=== PATIENT | male | born 1945 | race African-American/Black ===

== ENCOUNTER 2017-10-28 13:50 | Inpatient (IN) ==
[2017-10-28 17:16] LABS: Basophils % 0.4 % (0.0-0.8); Eosinophils % 0.3 % (0.00-10.9); Hematocrit 48.9 VOL% (42.0-52.0); Hemoglobin 15.9 GM/DL (14.0-18.0); Immature Granulocytes % 0.3 %; Immature Granulocytes Absolute 0.02 #; Lymphocytes # 1.1 10*3/uL (1.4-4.0); Mean Corpuscular HGB Conc 32.5 GM/DL (32-36); Mean Corpuscular Hemoglobin 34 PG (27-34); Mean Corpuscular Volume 103.6 FL (87-102); Mean Platelet Volume 12.7 FL (9.6-12.0); Monocytes # 0.6 10*3/uL (0.11-0.8); Monocytes % 7.7 % (1.7-12.7); Neutrophils # 6.1 10*3/uL (1.4-7.4); Neutrophils % 77.3 % (38.7-73.9); Platelet Count 109 T/CUMM (130-400); Red Blood Count 4.72 MC/CUMM (3.8-5.5); Red Cell Distribution Width 12.5 % (9.3-17.3); White Blood Count 7.8 T/CUMM (4-12)
[2017-10-28 17:37] LABS: Alanine Aminotransferase 22 U/L (16-61); Albumin 3.2 G/DL (3.4-5.0); Alkaline Phosphatase 78 U/L (45-117); Aspartate Amino Transferase 21 U/L (0-37); Blood Urea Nitrogen 41 MG/DL (7-18); CKMB % 5.9 %; Calcium 8.7 MG/DL (8.5-10.1); Glucose 159 MG/DL (74-106); Magnesium 2.9 MG/DL (1.8-2.4); Osmolality,Calculated 289.5 MOS/KG (273-304); Potassium 3.9 MMOL/L (3.5-5.1); Sodium 139 MMOL/L (136-145); Total Protein 8.3 G/DL (6.4-8.3); Troponin I Only < 0.015 NG/ML (0.00-0.045)
[2017-10-28 19:40] LABS: PT Patient Result 10.6 SECS
[2017-10-28] MEDS ORDERED: SODIUM CHLORIDE 0.9% 1,000 ML IV STA ×2 (21:01)
[2017-10-28] MEDS ORDERED: methylPREDNISolone SOD SUC 125 MG/2 ML VIAL IV STA (21:02)
[2017-10-28] MEDS ORDERED: ALBUTEROL/IPRATROPIUM 3 ML NEB RESP TX STA (21:02)
[2017-10-28] MEDS ORDERED: methylPREDNISolone SOD SUC 125 MG/2 ML VIAL ONE (22:15)
[2017-10-29] MEDS ORDERED: ZALEPLON 5 MG CAPSULE PO PRN (00:20)
[2017-10-29] MEDS ORDERED: ONDANSETRON 4 MG/2 ML VIAL IV PRN (00:20)
[2017-10-29] MEDS ORDERED: ALBUTEROL 2.5 MG/3 ML NEB RESP TX PRN (00:20)
[2017-10-29] MEDS ORDERED: ACETAMINOPHEN 325 MG TABLET PO PRN (00:20)
[2017-10-29] MEDS: ALBUTEROL/IPRATROPIUM 3 ML NEB RESP TX SCH ×4 (00:31→20:15)
[2017-10-29] MEDS ORDERED: LORazepam 1 MG TABLET PO PRN (01:14)
[2017-10-29] MEDS: SODIUM CHLORIDE 0.9% 1,000 ML IV SCH ×3 (01:50→20:37)
[2017-10-29] MEDS: LEVOFLOXACIN INJ 750 MG in PREMIX 1 EACH IV SCH (01:52)
[2017-10-29] MEDS: methylPREDNISolone SOD SUC 40 MG/1 ML VIAL IV SCH ×3 (06:30→21:50)
[2017-10-29] MEDS: ENOXAPARIN 40 MG/0.4 ML SYRINGE SUBCUT SCH (06:32)
[2017-10-29] MEDS: BUDESONIDE/FORMOTEROL 160-4.5 INHALER 6 GM INH SCH ×3 (06:32→20:37)
[2017-10-29 07:29] LABS: Hematocrit 35.2 VOL% (42.0-52.0); Immature Granulocytes % 0.3 %; Immature Granulocytes Absolute 0.01 #; Lymphocytes # 0.6 10*3/uL (1.4-4.0); Lymphocytes % 17.2 % (21.2-54.2); Mean Corpuscular HGB Conc 34.1 GM/DL (32-36); Mean Corpuscular Hemoglobin 34 PG (27-34); Mean Platelet Volume 12.3 FL (9.6-12.0); Monocytes # 0.1 10*3/uL (0.11-0.8); Monocytes % 2.2 % (1.7-12.7); Neutrophils # 2.9 10*3/uL (1.4-7.4); Neutrophils % 80.3 % (38.7-73.9); Platelet Count 124 T/CUMM (130-400); Red Cell Distribution Width 12.6 % (9.3-17.3)
[2017-10-29 07:31] LABS: Red Blood Count 3.52 MC/CUMM (3.8-5.5); White Blood Count 3.6 T/CUMM (4-12)
[2017-10-29 07:53] LABS: Band Neutrophils 1 % (0-10); Calcium 7.7 MG/DL (8.5-10.1); Giant Platelets Few; Hypochromasia 1+; Lymphocytes 15 % (20-55); Osmolality,Calculated 288.3 MOS/KG (273-304); Potassium 3.9 MMOL/L (3.5-5.1); Segmented Neutrophils 83 % (50-85); Total Cells Counted 100
[2017-10-29 07:54] LABS: Macrocytosis Slight; Platelet Estimate Adequate
[2017-10-29] MEDS: FOLIC ACID 1 MG TABLET PO SCH (09:36)
[2017-10-29] MEDS: THIAMINE 100 MG TABLET PO SCH (09:36)
[2017-10-29] MEDS: PANTOPRAZOLE 40 MG TABLET PO SCH (09:36)
[2017-10-29] MEDS: MULTIVITAMIN (CENTRUM) TABLET PO SCH (09:36)
[2017-10-29 12:54] LABS: Folate > 24.0 NG/ML (5.4-24.0); Vitamin B12 1066 PG/ML (211-911)
[2017-10-29] MEDS: CITALOPRAM 20 MG TABLET PO SCH (13:53)
[2017-10-30] MEDS: ALBUTEROL/IPRATROPIUM 3 ML NEB RESP TX SCH ×4 (00:04→20:03)
[2017-10-30] MEDS: LEVOFLOXACIN INJ 750 MG in PREMIX 1 EACH IV SCH (01:15)
[2017-10-30] MEDS: SODIUM CHLORIDE 0.9% 1,000 ML IV SCH ×3 (05:27→19:10)
[2017-10-30] MEDS: methylPREDNISolone SOD SUC 40 MG/1 ML VIAL IV SCH ×4 (05:28→23:51)
[2017-10-30] MEDS: ENOXAPARIN 40 MG/0.4 ML SYRINGE SUBCUT SCH (05:30)
[2017-10-30] MEDS: FOLIC ACID 1 MG TABLET PO SCH (09:09)
[2017-10-30] MEDS: BUDESONIDE/FORMOTEROL 160-4.5 INHALER 6 GM INH SCH ×2 (09:09→20:47)
[2017-10-30] MEDS: PANTOPRAZOLE 40 MG TABLET PO SCH (09:09)
[2017-10-30] MEDS: MULTIVITAMIN (CENTRUM) TABLET PO SCH (09:09)
[2017-10-30] MEDS: CITALOPRAM 20 MG TABLET PO SCH (09:09)
[2017-10-30] MEDS: THIAMINE 100 MG TABLET PO SCH (09:09)
[2017-10-31] MEDS: ALBUTEROL/IPRATROPIUM 3 ML NEB RESP TX SCH ×4 (00:12→19:35)
[2017-10-31] MEDS: LEVOFLOXACIN INJ 750 MG in PREMIX 1 EACH IV SCH (03:01)
[2017-10-31] MEDS: SODIUM CHLORIDE 0.9% 1,000 ML IV SCH ×2 (05:33→11:10)
[2017-10-31 06:31] LABS: Basophils % 0.1 % (0.0-0.8); Hematocrit 31.1 VOL% (42.0-52.0); Hemoglobin 10.5 GM/DL (14.0-18.0); Immature Granulocytes % 0.5 %; Immature Granulocytes Absolute 0.04 #; Lymphocytes # 0.7 10*3/uL (1.4-4.0); Lymphocytes % 8.8 % (21.2-54.2); Mean Corpuscular HGB Conc 33.8 GM/DL (32-36); Mean Corpuscular Hemoglobin 33 PG (27-34); Mean Platelet Volume 11.7 FL (9.6-12.0); Monocytes # 0.4 10*3/uL (0.11-0.8); Monocytes % 4.5 % (1.7-12.7); Neutrophils # 7.2 10*3/uL (1.4-7.4); Neutrophils % 86.1 % (38.7-73.9); Platelet Count 228 T/CUMM (130-400); Red Blood Count 3.14 MC/CUMM (3.8-5.5); Red Cell Distribution Width 12.8 % (9.3-17.3); White Blood Count 8.4 T/CUMM (4-12)
[2017-10-31 06:56] LABS: Calcium 8.1 MG/DL (8.5-10.1); Osmolality,Calculated 284.1 MOS/KG (273-304); Potassium 4.1 MMOL/L (3.5-5.1)
[2017-10-31 07:25] LABS: Band Neutrophils 1 % (0-10); Hypochromasia 1+; Lymphocytes 6 % (20-55); Platelet Estimate Adequate; Segmented Neutrophils 87 % (50-85); Total Cells Counted 100
[2017-10-31 07:26] LABS: Giant Platelets Few; Macrocytosis Slight; Ovalocytes Slight
[2017-10-31] MEDS: BISACODYL 5 MG TABLET PO SCH ×2 (10:25→16:21)
[2017-10-31] MEDS: methylPREDNISolone SOD SUC 40 MG/1 ML VIAL IV SCH ×3 (10:25→23:12)
[2017-10-31] MEDS: FOLIC ACID 1 MG TABLET PO SCH (10:26)
[2017-10-31] MEDS: PANTOPRAZOLE 40 MG TABLET PO SCH (10:26)
[2017-10-31] MEDS: MULTIVITAMIN (CENTRUM) TABLET PO SCH (10:26)
[2017-10-31] MEDS: CITALOPRAM 20 MG TABLET PO SCH (10:26)
[2017-10-31] MEDS: BUDESONIDE/FORMOTEROL 160-4.5 INHALER 6 GM INH SCH ×2 (10:26→21:22)
[2017-10-31] MEDS: THIAMINE 100 MG TABLET PO SCH (10:26)
[2017-10-31] MEDS ORDERED: PROPOFOL 200 MG/20 ML VIAL IV ONE (13:05)
[2017-10-31] MEDS ORDERED: LIDOCAINE 2% 5 ML VIAL ONE (13:05)
[2017-10-31] MEDS ORDERED: POLYETHYLENE GLYCOL POWDER 255 GM BOTTLE PO ONE (18:00)
[2017-10-31] MEDS ORDERED: MAGNESIUM CITRATE 300 ML BOTTLE PO ONE (21:00)
[2017-11-01] MEDS: SODIUM CHLORIDE 0.9% 1,000 ML IV SCH ×3 (00:18→16:07)
[2017-11-01] MEDS: BISACODYL 5 MG TABLET PO SCH (00:19)
[2017-11-01] MEDS: ALBUTEROL/IPRATROPIUM 3 ML NEB RESP TX SCH ×4 (01:08→20:59)
[2017-11-01] MEDS: LEVOFLOXACIN INJ 750 MG in PREMIX 1 EACH IV SCH (01:51)
[2017-11-01 08:56] LABS: Calcium 9.2 MG/DL (8.5-10.1); Magnesium 1.6 MG/DL (1.8-2.4); Osmolality,Calculated 275.4 MOS/KG (273-304); Potassium 3.4 MMOL/L (3.5-5.1)
[2017-11-01] MEDS ORDERED: POTASSIUM CHLORIDE 20 MEQ TABLET PO ONE (13:21)
[2017-11-01] MEDS ORDERED: MAGNESIUM SULF RIDER 2 GM in PREMIX 1 EACH IV ONE (13:23)
[2017-11-01] MEDS: THIAMINE 100 MG TABLET PO SCH (15:28)
[2017-11-01] MEDS: PANTOPRAZOLE 40 MG TABLET PO SCH (15:28)
[2017-11-01] MEDS: FOLIC ACID 1 MG TABLET PO SCH (15:28)
[2017-11-01] MEDS: MULTIVITAMIN (CENTRUM) TABLET PO SCH (15:28)
[2017-11-01] MEDS: CITALOPRAM 20 MG TABLET PO SCH (15:28)
[2017-11-01] MEDS ORDERED: ETOMIDATE 20 MG/10 ML VIAL IV ONE (15:51)
[2017-11-01] MEDS ORDERED: PROPOFOL 200 MG/20 ML VIAL IV ONE (15:51)
[2017-11-01] MEDS ORDERED: LIDOCAINE 100 MG/5 ML SYRINGE ONE (15:51)
[2017-11-01] MEDS: BUDESONIDE/FORMOTEROL 160-4.5 INHALER 6 GM INH SCH ×2 (16:07→22:06)
[2017-11-01] MEDS: methylPREDNISolone SOD SUC 40 MG/1 ML VIAL IV SCH ×2 (16:07→22:06)
[2017-11-02] MEDS: LEVOFLOXACIN INJ 750 MG in PREMIX 1 EACH IV SCH (00:51)
[2017-11-02] MEDS: ALBUTEROL/IPRATROPIUM 3 ML NEB RESP TX SCH ×2 (01:45→07:24)
[2017-11-02] MEDS: SODIUM CHLORIDE 0.9% 1,000 ML IV SCH ×2 (03:50→06:16)
[2017-11-02 05:31] LABS: Calcium 7.6 MG/DL (8.5-10.1); Osmolality,Calculated 280.3 MOS/KG (273-304); Potassium 4.6 MMOL/L (3.5-5.1)
[2017-11-02] MEDS: ENOXAPARIN 40 MG/0.4 ML SYRINGE SUBCUT SCH (06:16)
[2017-11-02 08:26] VITALS: BP 148/80
[2017-11-02] MEDS: MULTIVITAMIN (CENTRUM) TABLET PO SCH (08:55)
[2017-11-02] MEDS: CITALOPRAM 20 MG TABLET PO SCH (08:55)
[2017-11-02] MEDS: PANTOPRAZOLE 40 MG TABLET PO SCH (08:55)
[2017-11-02] MEDS: THIAMINE 100 MG TABLET PO SCH (08:56)
[2017-11-02] MEDS: FOLIC ACID 1 MG TABLET PO SCH (08:56)
[2017-11-02] MEDS: BUDESONIDE/FORMOTEROL 160-4.5 INHALER 6 GM INH SCH (08:58)
[2017-11-02] MEDS: methylPREDNISolone SOD SUC 40 MG/1 ML VIAL IV SCH (10:59)
[2017-11-02] MEDS ORDERED: MIRTAZAPINE 30 MG TABLET PO SCH (21:00)
== END 2017-11-02 14:15 | disposition home or self-care (01) | DRG 190 ==
LOC: N.ED 13:50 → N.EDINP 13:50 → N.4E 10-29 01:11 → SUATTDRO 10-30 14:39
PROVIDERS: ADMIT Internal Medicine; ATTEND Internal Medicine Infectious Disease
PROC: COLONHP (2017-11-01 07:05)

== ENCOUNTER 2018-09-14 15:43 | Inpatient (IN) ==
[2018-09-14] MEDS ORDERED: ALBUTEROL/IPRATROPIUM 3 ML NEB RESP TX STA (16:13)
[2018-09-14] MEDS ORDERED: LEVOFLOXACIN INJ 750 MG in PREMIX 1 EACH IV STA (16:13)
[2018-09-14] MEDS ORDERED: methylPREDNISolone SOD SUC 125 MG/2 ML VIAL IV STA (16:13)
[2018-09-14 17:19] LABS: Basophils % 0.3 % (0.0-0.8); Hematocrit 50.7 VOL% (42.0-52.0); Hemoglobin 16.3 GM/DL (14.0-18.0); Immature Granulocytes % 0.3 %; Immature Granulocytes Absolute 0.02 #; Lymphocytes # 0.6 10*3/uL (1.4-4.0); Lymphocytes % 8.3 % (21.2-54.2); Mean Corpuscular HGB Conc 32.1 GM/DL (32-36); Mean Corpuscular Hemoglobin 34 PG (27-34); Mean Corpuscular Volume 104.3 FL (87-102); Mean Platelet Volume 11.6 FL (9.6-12.0); Monocytes # 0.6 10*3/uL (0.11-0.8); Monocytes % 7.9 % (1.7-12.7); Neutrophils # 5.8 10*3/uL (1.4-7.4); Neutrophils % 83.2 % (38.7-73.9); Platelet Count 102 T/CUMM (130-400); Red Blood Count 4.86 MC/CUMM (3.8-5.5); Red Cell Distribution Width 13.9 % (9.3-17.3)
[2018-09-14] MEDS ORDERED: ALBUTEROL/IPRATROPIUM 3 ML NEB RESP TX PRN (17:51)
[2018-09-14] MEDS ORDERED: ACETAMINOPHEN 325 MG TABLET PO PRN (17:51)
[2018-09-14] MEDS ORDERED: ONDANSETRON 4 MG/2 ML VIAL IV PRN (17:51)
[2018-09-14] MEDS ORDERED: LORazepam 1 MG TABLET PO PRN (18:02)
[2018-09-14] MEDS: ALBUTEROL/IPRATROPIUM 3 ML NEB RESP TX SCH (19:00)
[2018-09-14] MEDS: SODIUM CHLORIDE 0.9% 1,000 ML IV SCH (19:08)
[2018-09-14 19:21] LABS: Albumin 3.1 G/DL (3.4-5.0); Bilirubin,Total 0.4 MG/DL (0.2-1.0); Calcium 8.8 MG/DL (8.5-10.1); Osmolality,Calculated 268.5 MOS/KG (273-304); Potassium 5.2 MMOL/L (3.5-5.1); Total Protein 8.1 G/DL (6.4-8.3)
[2018-09-14] MEDS: ENOXAPARIN 40 MG/0.4 ML SYRINGE SUBCUT SCH (21:08)
[2018-09-14] MEDS: methylPREDNISolone SOD SUC 40 MG/1 ML VIAL IV SCH (21:09)
[2018-09-15] MEDS: ALBUTEROL/IPRATROPIUM 3 ML NEB RESP TX SCH ×4 (00:11→19:10)
[2018-09-15 01:12] LABS: Hemoglobin 14.8 GM/DL (14.0-18.0); Immature Granulocytes % 0.9 %; Immature Granulocytes Absolute 0.04 #; Lymphocytes # 0.3 10*3/uL (1.4-4.0); Lymphocytes % 6.5 % (21.2-54.2); Mean Corpuscular HGB Conc 31.5 GM/DL (32-36); Mean Corpuscular Hemoglobin 33 PG (27-34); Mean Corpuscular Volume 105.6 FL (87-102); Mean Platelet Volume 12.1 FL (9.6-12.0); Monocytes # 0.1 10*3/uL (0.11-0.8); Monocytes % 2.1 % (1.7-12.7); Neutrophils # 3.9 10*3/uL (1.4-7.4); Neutrophils % 90.5 % (38.7-73.9); Platelet Count 100 T/CUMM (130-400); Red Blood Count 4.45 MC/CUMM (3.8-5.5); Red Cell Distribution Width 13.8 % (9.3-17.3); White Blood Count 4.3 T/CUMM (4-12)
[2018-09-15] MEDS: SODIUM CHLORIDE 0.9% 1,000 ML IV SCH ×3 (03:15→23:20)
[2018-09-15 03:34] LABS: Calcium 8.4 MG/DL (8.5-10.1); Osmolality,Calculated 272.4 MOS/KG (273-304); Potassium 5.1 MMOL/L (3.5-5.1)
[2018-09-15 05:09] LABS: Platelet Estimate Decreased; Polychromasia Few
[2018-09-15] MEDS: methylPREDNISolone SOD SUC 40 MG/1 ML VIAL IV SCH ×4 (05:17→22:01)
[2018-09-15] MEDS: NICOTINE 21 MG/24 HR PATCH TRANSDERM SCH (09:30)
[2018-09-15] MEDS ORDERED: SODIUM CHLORIDE 0.9% 100 ML IV ONE (10:49)
[2018-09-15] MEDS: THIAMINE 200 MG/2 ML VIAL IV SCH (11:04)
[2018-09-15] MEDS ORDERED: LEVOFLOXACIN INJ 750 MG in PREMIX 1 EACH IV SCH (16:00)
[2018-09-15] MEDS: FLUTICASONE/SALMETEROL 250-50 DISKUS 14 DOSE INH SCH (21:34)
[2018-09-15] MEDS: ENOXAPARIN 40 MG/0.4 ML SYRINGE SUBCUT SCH (21:34)
[2018-09-16] MEDS: ALBUTEROL/IPRATROPIUM 3 ML NEB RESP TX SCH ×4 (00:20→20:00)
[2018-09-16] MEDS: methylPREDNISolone SOD SUC 40 MG/1 ML VIAL IV SCH ×4 (04:05→21:21)
[2018-09-16] MEDS: SODIUM CHLORIDE 0.9% 1,000 ML IV SCH (08:00)
[2018-09-16] MEDS: FLUTICASONE/SALMETEROL 250-50 DISKUS 14 DOSE INH SCH ×2 (09:55→21:21)
[2018-09-16] MEDS: THIAMINE 200 MG/2 ML VIAL IV SCH (09:57)
[2018-09-16] MEDS: NICOTINE 21 MG/24 HR PATCH TRANSDERM SCH (09:58)
[2018-09-16] MEDS: MULTIVITAMIN (BEROCCA) TABLET PO SCH (14:18)
[2018-09-16] MEDS: buPROPion SR 150 MG TABLET PO SCH (14:18)
[2018-09-16] MEDS: CYPROHEPTADINE 4 MG TABLET PO SCH ×2 (17:03→21:21)
[2018-09-16] MEDS: ENOXAPARIN 40 MG/0.4 ML SYRINGE SUBCUT SCH (21:21)
[2018-09-17] MEDS: ALBUTEROL/IPRATROPIUM 3 ML NEB RESP TX SCH ×4 (00:24→19:18)
[2018-09-17] MEDS: methylPREDNISolone SOD SUC 40 MG/1 ML VIAL IV SCH ×3 (06:04→22:44)
[2018-09-17] MEDS: CYPROHEPTADINE 4 MG TABLET PO SCH ×3 (09:07→22:44)
[2018-09-17] MEDS: FLUTICASONE/SALMETEROL 250-50 DISKUS 14 DOSE INH SCH ×2 (09:07→22:47)
[2018-09-17] MEDS: buPROPion SR 150 MG TABLET PO SCH ×2 (09:07→22:44)
[2018-09-17] MEDS: THIAMINE 100 MG TABLET PO SCH (09:07)
[2018-09-17] MEDS: MULTIVITAMIN (BEROCCA) TABLET PO SCH (09:08)
[2018-09-17] MEDS: LEVOFLOXACIN 500 MG TABLET PO SCH (09:08)
[2018-09-17] MEDS: NICOTINE 21 MG/24 HR PATCH TRANSDERM SCH (09:08)
[2018-09-17] MEDS: ENOXAPARIN 40 MG/0.4 ML SYRINGE SUBCUT SCH (22:45)
[2018-09-18] MEDS: ALBUTEROL/IPRATROPIUM 3 ML NEB RESP TX SCH ×4 (00:19→19:31)
[2018-09-18] MEDS: MULTIVITAMIN (BEROCCA) TABLET PO SCH (10:50)
[2018-09-18] MEDS: buPROPion SR 150 MG TABLET PO SCH ×2 (10:50→21:29)
[2018-09-18] MEDS: NICOTINE 21 MG/24 HR PATCH TRANSDERM SCH (10:50)
[2018-09-18] MEDS: LEVOFLOXACIN 500 MG TABLET PO SCH (10:51)
[2018-09-18] MEDS: THIAMINE 100 MG TABLET PO SCH (10:51)
[2018-09-18] MEDS: CYPROHEPTADINE 4 MG TABLET PO SCH ×3 (10:51→21:29)
[2018-09-18] MEDS: methylPREDNISolone SOD SUC 40 MG/1 ML VIAL IV SCH ×2 (10:52→21:30)
[2018-09-18] MEDS: FLUTICASONE/SALMETEROL 250-50 DISKUS 14 DOSE INH SCH ×2 (10:52→21:30)
[2018-09-18] MEDS: ENOXAPARIN 40 MG/0.4 ML SYRINGE SUBCUT SCH (21:29)
[2018-09-19] MEDS: ALBUTEROL/IPRATROPIUM 3 ML NEB RESP TX SCH ×2 (00:31→08:25)
[2018-09-19] MEDS: NICOTINE 21 MG/24 HR PATCH TRANSDERM SCH (09:27)
[2018-09-19] MEDS: methylPREDNISolone SOD SUC 40 MG/1 ML VIAL IV SCH (09:28)
[2018-09-19] MEDS: buPROPion SR 150 MG TABLET PO SCH (09:31)
[2018-09-19] MEDS: MULTIVITAMIN (BEROCCA) TABLET PO SCH (09:33)
[2018-09-19] MEDS: THIAMINE 100 MG TABLET PO SCH (09:33)
[2018-09-19] MEDS: CYPROHEPTADINE 4 MG TABLET PO SCH (09:33)
[2018-09-19] MEDS: LEVOFLOXACIN 500 MG TABLET PO SCH (09:33)
[2018-09-19] MEDS: FLUTICASONE/SALMETEROL 250-50 DISKUS 14 DOSE INH SCH (09:34)
[2018-09-19 11:08] VITALS: BP 162/89
== END 2018-09-19 12:44 | disposition home or self-care (01) | DRG 190 ==
LOC: EDBD → EDUNIT# → N.ED 15:43 → SUATTDRO 17:51 → N.EDINP 18:15 → N.5E 18:17 → UNDODISIN 09-17 15:24
PROVIDERS: ADMIT Emergency Medicine; ATTEND Hospitalist

== ENCOUNTER 2018-09-19 21:03 | Observation (INO) ==
[2018-09-19] MEDS ORDERED: cefTRIAXone 1,000 MG in SODIUM CHLORIDE 0.9% 100 ML IV STA (21:20)
[2018-09-19] MEDS ORDERED: methylPREDNISolone SOD SUC 125 MG/2 ML VIAL IV STA (21:20)
[2018-09-19] MEDS ORDERED: SODIUM CHLORIDE 0.9% 500 ML IV STA (21:20)
[2018-09-19] MEDS ORDERED: ONDANSETRON 4 MG/2 ML VIAL IV STA (21:20)
[2018-09-19 21:28] LABS: Basophils % 0.3 % (0.0-0.8); Hematocrit 45.3 VOL% (42.0-52.0); Hemoglobin 14.7 GM/DL (14.0-18.0); Immature Granulocytes % 0.3 %; Immature Granulocytes Absolute 0.03 #; Lymphocytes # 1.2 10*3/uL (1.4-4.0); Lymphocytes % 10.8 % (21.2-54.2); Mean Corpuscular HGB Conc 32.5 GM/DL (32-36); Mean Corpuscular Hemoglobin 34 PG (27-34); Mean Corpuscular Volume 103.2 FL (87-102); Mean Platelet Volume 11.7 FL (9.6-12.0); Monocytes % 9.1 % (1.7-12.7); Neutrophils # 8.5 10*3/uL (1.4-7.4); Neutrophils % 79.5 % (38.7-73.9); Platelet Count 132 T/CUMM (130-400); Red Blood Count 4.39 MC/CUMM (3.8-5.5); Red Cell Distribution Width 13.9 % (9.3-17.3); White Blood Count 10.7 T/CUMM (4-12)
[2018-09-19] MEDS ORDERED: ALBUTEROL 2.5 MG/3 ML NEB RESP TX SCH (21:30)
[2018-09-19 21:35] LABS: INR 0.9; PT Patient Result 9.9 SECS
[2018-09-19 21:47] LABS: Alanine Aminotransferase 17 U/L (16-61); Albumin 2.5 G/DL (3.4-5.0); Alkaline Phosphatase 53 U/L (45-117); Aspartate Amino Transferase 10 U/L (0-37); Bilirubin,Total < 0.39 MG/DL (0.2-1.0); Blood Urea Nitrogen 35 MG/DL (7-18); Calcium 9.2 MG/DL (8.5-10.1); Glucose 107 MG/DL (74-106); Osmolality,Calculated 280.8 MOS/KG (273-304); Potassium 4.1 MMOL/L (3.5-5.1); Sodium 137 MMOL/L (136-145)
[2018-09-19 21:54] LABS: ABG Base Excess 4.2 MMOL/L (-2.5-2.5); ABG HCO3 27.9 MMOL/L (20-26); ABG Oxygen Saturation 89.7 % (95-100); ABG PCO2 51.2 MM HG (35-48); ABG PH 7.384 (7.35-7.45); ABG PO2 61.5 MM HG (80-95); ABG TCO2 26.4 MMOL/L (23-27); Allen Test Positive
[2018-09-19] MEDS ORDERED: ONDANSETRON 4 MG/2 ML VIAL IV PRN (22:44)
[2018-09-19] MEDS ORDERED: ALBUTEROL 2.5 MG/3 ML NEB RESP TX PRN (22:44)
[2018-09-19] MEDS ORDERED: ACETAMINOPHEN 325 MG TABLET PO PRN (22:44)
[2018-09-20] MEDS: ALBUTEROL/IPRATROPIUM 3 ML NEB RESP TX SCH ×5 (01:16→23:58)
[2018-09-20] MEDS: BUDESONIDE/FORMOTEROL 160-4.5 INHALER 6 GM INH SCH ×3 (01:27→21:06)
[2018-09-20] MEDS: ENOXAPARIN 40 MG/0.4 ML SYRINGE SUBCUT SCH ×2 (01:27→23:11)
[2018-09-20] MEDS: methylPREDNISolone SOD SUC 40 MG/1 ML VIAL IV SCH ×3 (06:09→21:05)
[2018-09-20 07:36] LABS: Basophils % 0.1 % (0.0-0.8); Hematocrit 40.9 VOL% (42.0-52.0); Hemoglobin 13.5 GM/DL (14.0-18.0); Immature Granulocytes % 0.3 %; Immature Granulocytes Absolute 0.02 #; Lymphocytes # 0.4 10*3/uL (1.4-4.0); Lymphocytes % 6.4 % (21.2-54.2); Mean Corpuscular Hemoglobin 33 PG (27-34); Mean Platelet Volume 11.4 FL (9.6-12.0); Monocytes # 0.4 10*3/uL (0.11-0.8); Monocytes % 5.1 % (1.7-12.7); Neutrophils # 6.1 10*3/uL (1.4-7.4); Neutrophils % 88.1 % (38.7-73.9); Platelet Count 132 T/CUMM (130-400); Red Blood Count 4.05 MC/CUMM (3.8-5.5); White Blood Count 6.9 T/CUMM (4-12)
[2018-09-20 08:05] LABS: Albumin 2.3 G/DL (3.4-5.0); Bilirubin,Total 0.6 MG/DL (0.2-1.0); Calcium 8.4 MG/DL (8.5-10.1); Osmolality,Calculated 284.7 MOS/KG (273-304); Potassium 4.5 MMOL/L (3.5-5.1); Total Protein 6.2 G/DL (6.4-8.3)
[2018-09-20] MEDS ORDERED: CITALOPRAM 20 MG TABLET PO SCH (09:00)
[2018-09-20] MEDS ORDERED: INFLUENZA VIRUS VACCINE 0.5 ML SYRINGE IM ONE (09:00)
[2018-09-20] MEDS: THIAMINE 100 MG TABLET PO SCH (09:18)
[2018-09-20] MEDS: MULTIVITAMIN (CENTRUM) TABLET PO SCH (09:18)
[2018-09-20] MEDS: LEVOFLOXACIN 500 MG TABLET PO SCH (09:18)
[2018-09-20] MEDS: PANTOPRAZOLE 40 MG TABLET PO SCH (09:18)
[2018-09-20] MEDS: CYPROHEPTADINE 4 MG TABLET PO SCH ×3 (09:19→21:05)
[2018-09-20] MEDS: NICOTINE 21 MG/24 HR PATCH TRANSDERM SCH (09:22)
[2018-09-20] MEDS: buPROPion SR 100 MG TABLET PO SCH ×2 (13:49→21:05)
[2018-09-20] MEDS ORDERED: CALCIUM CARBONATE CHEW 500 MG TABLET PO PRN (20:23)
[2018-09-20] MEDS: ZALEPLON 5 MG CAPSULE PO PRN (21:05)
[2018-09-21] MEDS: methylPREDNISolone SOD SUC 40 MG/1 ML VIAL IV SCH (06:07)
[2018-09-21] MEDS: ALBUTEROL/IPRATROPIUM 3 ML NEB RESP TX SCH ×3 (07:40→20:03)
[2018-09-21] MEDS: NICOTINE 21 MG/24 HR PATCH TRANSDERM SCH (08:52)
[2018-09-21] MEDS: PANTOPRAZOLE 40 MG TABLET PO SCH (08:53)
[2018-09-21] MEDS: CYPROHEPTADINE 4 MG TABLET PO SCH ×3 (08:53→20:31)
[2018-09-21] MEDS: buPROPion SR 100 MG TABLET PO SCH ×2 (08:53→20:31)
[2018-09-21] MEDS: MULTIVITAMIN (CENTRUM) TABLET PO SCH (08:53)
[2018-09-21] MEDS: LEVOFLOXACIN 500 MG TABLET PO SCH (08:53)
[2018-09-21] MEDS: THIAMINE 100 MG TABLET PO SCH (08:53)
[2018-09-21] MEDS: BUDESONIDE/FORMOTEROL 160-4.5 INHALER 6 GM INH SCH ×2 (08:54→20:31)
[2018-09-21] MEDS: ZALEPLON 5 MG CAPSULE PO PRN (20:31)
[2018-09-21] MEDS: ENOXAPARIN 40 MG/0.4 ML SYRINGE SUBCUT SCH (23:33)
[2018-09-22] MEDS: ALBUTEROL/IPRATROPIUM 3 ML NEB RESP TX SCH ×4 (01:32→19:57)
[2018-09-22] MEDS: NICOTINE 21 MG/24 HR PATCH TRANSDERM SCH (09:31)
[2018-09-22] MEDS: BUDESONIDE/FORMOTEROL 160-4.5 INHALER 6 GM INH SCH ×2 (09:33→21:36)
[2018-09-22] MEDS: PANTOPRAZOLE 40 MG TABLET PO SCH (09:33)
[2018-09-22] MEDS: predniSONE 20 MG TABLET PO SCH (09:33)
[2018-09-22] MEDS: CYPROHEPTADINE 4 MG TABLET PO SCH ×3 (09:33→21:36)
[2018-09-22] MEDS: THIAMINE 100 MG TABLET PO SCH (09:33)
[2018-09-22] MEDS: MULTIVITAMIN (CENTRUM) TABLET PO SCH (09:33)
[2018-09-22] MEDS: buPROPion SR 100 MG TABLET PO SCH ×2 (09:33→21:36)
[2018-09-22] MEDS: LEVOFLOXACIN 500 MG TABLET PO SCH (09:35)
[2018-09-22] MEDS ORDERED: MAGNESIUM HYDROXIDE SUSP 30 ML UDCUP PO ONE (12:04)
[2018-09-22] MEDS: ZALEPLON 5 MG CAPSULE PO PRN (21:36)
[2018-09-22] MEDS: ENOXAPARIN 40 MG/0.4 ML SYRINGE SUBCUT SCH (23:36)
[2018-09-23] MEDS: ALBUTEROL/IPRATROPIUM 3 ML NEB RESP TX SCH ×2 (01:48→07:07)
[2018-09-23] MEDS: CYPROHEPTADINE 4 MG TABLET PO SCH (08:44)
[2018-09-23] MEDS: buPROPion SR 100 MG TABLET PO SCH (08:44)
[2018-09-23] MEDS: predniSONE 20 MG TABLET PO SCH (08:44)
[2018-09-23] MEDS: PANTOPRAZOLE 40 MG TABLET PO SCH (08:44)
[2018-09-23] MEDS: MULTIVITAMIN (CENTRUM) TABLET PO SCH (08:44)
[2018-09-23] MEDS: THIAMINE 100 MG TABLET PO SCH (08:45)
[2018-09-23] MEDS: NICOTINE 21 MG/24 HR PATCH TRANSDERM SCH (08:45)
[2018-09-23] MEDS: BUDESONIDE/FORMOTEROL 160-4.5 INHALER 6 GM INH SCH (08:46)
[2018-09-23 14:33] VITALS: BP 123/65
== END 2018-09-23 13:24 | disposition home or self-care (01) ==
LOC: EDUNIT# → EDBD → N.EDINP 21:03 → N.ED 21:03 → SUATTDRO 22:44 → N.5E 23:45
PROVIDERS: ADMIT Hospitalist; ATTEND Internal Medicine Geriatric Medicine

== ENCOUNTER 2022-04-14 20:33 | Inpatient (IN) ==
[2022-04-14] MEDS ORDERED: ALBUTEROL 2.5 MG/3 ML NEB RESP TX STA (21:17)
[2022-04-14] MEDS ORDERED: DEXAMETHASONE 4 MG/1 ML VIAL IV STA (21:17)
[2022-04-14 21:47] LABS: Basophils % 0.1 % (0.0-0.8); Hematocrit 46.2 VOL% (42.0-52.0); Immature Granulocytes % 0.3 %; Immature Granulocytes Absolute 0.02 #; Lymphocytes # 0.8 10*3/uL (1.4-4.0); Lymphocytes % 10.5 % (21.2-54.2); Mean Corpuscular HGB Conc 32.5 GM/DL (32-36); Mean Corpuscular Volume 98.9 FL (87-102); Mean Platelet Volume 11.2 FL (9.6-12.0); Monocytes # 0.3 10*3/uL (0.11-0.8); Monocytes % 4.1 % (1.7-12.7); Platelet Count 157 T/CUMM (130-400); Red Blood Count 4.67 MC/CUMM (3.8-5.5); Red Cell Distribution Width 13.7 % (9.3-17.3); White Blood Count 7.3 T/CUMM (4-12)
[2022-04-14 22:01] LABS: Calcium 9.2 MG/DL (8.5-10.1); Potassium 4.8 MMOL/L (3.5-5.1)
[2022-04-14] MEDS ORDERED: fentaNYL 100 MCG/2 ML VIAL IV STA (22:05)
[2022-04-14 22:13] LABS: Eosinophils 1 % (0-10); Lymphocytes 15 % (20-55); Platelet Estimate Adequate; Total Cells Counted 100
[2022-04-14] MEDS ORDERED: AZITHROMYCIN INJ 500 MG in SODIUM CHLORIDE 0.9% 250 ML IV STA (23:03)
[2022-04-14] MEDS ORDERED: SODIUM CHLORIDE 0.9% 500 ML IV STA (23:17)
[2022-04-14] MEDS ORDERED: ACETAMINOPHEN 325 MG TABLET PO PRN (23:38)
[2022-04-14] MEDS ORDERED: GLUCAGON 1 MG VIAL IM PRN (23:38)
[2022-04-14] MEDS ORDERED: SIMETHICONE CHEW 125 MG TABLET PO PRN (23:38)
[2022-04-14] MEDS ORDERED: ONDANSETRON 4 MG/2 ML VIAL IV PRN (23:38)
[2022-04-14] MEDS ORDERED: DEXTROSE 10% 250 ML BAG IV PRN (23:49)
[2022-04-14] MEDS ORDERED: methylPREDNISolone SOD SUC 40 MG/1 ML VIAL IV STA (23:50)
[2022-04-15] MEDS: ENOXAPARIN 40 MG/0.4 ML SYRINGE SUBCUT SCH ×2 (00:14→09:24)
[2022-04-15] MEDS ORDERED: ALBUTEROL 2.5 MG/3 ML NEB RESP TX SCH (01:00)
[2022-04-15] MEDS: MORPHINE 2 MG/1 ML SYRINGE IV PRN ×3 (01:13→12:22)
[2022-04-15] MEDS ORDERED: methylPREDNISolone SOD SUC 40 MG/1 ML VIAL IV SCH (06:00)
[2022-04-15 06:12] LABS: Basophils % 0.1 % (0.0-0.8); Hematocrit 42.6 VOL% (42.0-52.0); Hemoglobin 13.9 GM/DL (14.0-18.0); Immature Granulocytes % 0.5 %; Immature Granulocytes Absolute 0.04 #; Lymphocytes # 1.2 10*3/uL (1.4-4.0); Lymphocytes % 13.9 % (21.2-54.2); Mean Corpuscular HGB Conc 32.6 GM/DL (32-36); Mean Corpuscular Volume 99.5 FL (87-102); Mean Platelet Volume 11.2 FL (9.6-12.0); Monocytes # 0.3 10*3/uL (0.11-0.8); Monocytes % 3.8 % (1.7-12.7); Neutrophils % 81.7 % (38.7-73.9); Platelet Count 160 T/CUMM (130-400); Red Blood Count 4.28 MC/CUMM (3.8-5.5); Red Cell Distribution Width 13.7 % (9.3-17.3); White Blood Count 8.7 T/CUMM (4-12)
[2022-04-15 06:29] LABS: Calcium 8.7 MG/DL (8.5-10.1); Osmolality,Calculated 276.8 MOS/KG (273-304)
[2022-04-15] MEDS: SODIUM CHLORIDE 0.9% 1,000 ML IV SCH ×2 (06:44→19:59)
[2022-04-15 07:04] LABS: Lymphocytes 18 % (20-55); Platelet Estimate Adequate; Total Cells Counted 100
[2022-04-15] MEDS ORDERED: PANTOPRAZOLE 40 MG TABLET PO SCH (09:00)
[2022-04-15] MEDS: DOCUSATE SODIUM 100 MG CAPSULE PO SCH ×2 (09:23→20:13)
[2022-04-15] MEDS: NICOTINE 21 MG/24 HR PATCH TRANSDERM PRN (10:10)
[2022-04-15] MEDS ORDERED: LORazepam 0.5 MG TABLET PO PRN (10:26)
[2022-04-15] MEDS: ALBUTEROL/IPRATROPIUM 3 ML NEB RESP TX SCH ×2 (13:58→18:53)
[2022-04-16] MEDS: ALBUTEROL/IPRATROPIUM 3 ML NEB RESP TX SCH ×4 (00:47→19:11)
[2022-04-16] MEDS: MORPHINE 2 MG/1 ML SYRINGE IV PRN ×3 (05:20→16:54)
[2022-04-16 06:19] LABS: Basophils % 0.2 % (0.0-0.8); Eosinophils % 0.1 % (0.00-10.9); Hematocrit 38.4 VOL% (42.0-52.0); Hemoglobin 12.4 GM/DL (14.0-18.0); Immature Granulocytes % 0.4 %; Immature Granulocytes Absolute 0.04 #; Lymphocytes # 2.4 10*3/uL (1.4-4.0); Lymphocytes % 24.2 % (21.2-54.2); Mean Corpuscular HGB Conc 32.3 GM/DL (32-36); Mean Platelet Volume 11.2 FL (9.6-12.0); Neutrophils % 65.1 % (38.7-73.9); Platelet Count 137 T/CUMM (130-400); Red Blood Count 3.84 MC/CUMM (3.8-5.5); White Blood Count 9.8 T/CUMM (4-12)
[2022-04-16 06:40] LABS: Lymphocytes 20 % (20-55); Total Cells Counted 100
[2022-04-16 06:41] LABS: Platelet Estimate Adequate
[2022-04-16 06:44] LABS: Alanine Aminotransferase 18 U/L (16-61); Albumin 2.4 G/DL (3.4-5.0); Alkaline Phosphatase 57 U/L (45-117); Aspartate Amino Transferase 12 U/L (0-37); Bilirubin,Total < 0.39 MG/DL (0.20-1.00); Blood Urea Nitrogen 25 MG/DL (7-18); Calcium 8.4 MG/DL (8.5-10.1); Carbon Dioxide 27 MMOL/L (21-32); Chloride 109 MMOL/L (98-107); Glucose 87 MG/DL (74-106); Osmolality,Calculated 281.4 MOS/KG (273-304); Sodium 140 MMOL/L (136-145); Total Protein 6.1 G/DL (6.4-8.2)
[2022-04-16] MEDS: ENOXAPARIN 40 MG/0.4 ML SYRINGE SUBCUT SCH (09:31)
[2022-04-16] MEDS: DOCUSATE SODIUM 100 MG CAPSULE PO SCH ×2 (09:32→23:36)
[2022-04-16] MEDS: predniSONE 20 MG TABLET PO SCH (09:32)
[2022-04-16] MEDS: SODIUM CHLORIDE 0.9% 1,000 ML IV SCH (09:33)
[2022-04-16] MEDS ORDERED: MIDAZOLAM 2 MG/2 ML VIAL ONE (09:50)
[2022-04-16] MEDS ORDERED: BUPIVACAINE MPF 0.25% 10 ML VIAL ONE (09:55)
[2022-04-16] MEDS ORDERED: LIDOCAINE 1%/EPI INJ 20 ML VIAL ONE (09:55)
[2022-04-16] MEDS ORDERED: fentaNYL 100 MCG/2 ML VIAL ONE (10:27)
[2022-04-16] MEDS ORDERED: ETOMIDATE 40 MG/20 ML VIAL IV ONE (10:40)
[2022-04-16] MEDS: oxyCODONE/ACETAMINOPHEN 5-325 MG TABLET PO PRN ×2 (12:36→20:49)
[2022-04-16] MEDS ORDERED: METOPROLOL TARTRATE 5 MG/5 ML VIAL IV ONE (20:40)
[2022-04-16] MEDS: METOPROLOL TARTRATE 25 MG TABLET PO SCH (20:50)
[2022-04-17] MEDS: ALBUTEROL/IPRATROPIUM 3 ML NEB RESP TX SCH ×4 (00:35→19:51)
[2022-04-17] MEDS: MORPHINE 2 MG/1 ML SYRINGE IV PRN (01:29)
[2022-04-17] MEDS: SODIUM CHLORIDE 0.9% 1,000 ML IV SCH ×2 (04:08→19:15)
[2022-04-17] MEDS: oxyCODONE/ACETAMINOPHEN 5-325 MG TABLET PO PRN (04:08)
[2022-04-17 06:30] LABS: Basophils % 0.3 % (0.0-0.8); Eosinophils % 0.3 % (0.00-10.9); Hematocrit 43.7 VOL% (42.0-52.0); Hemoglobin 13.7 GM/DL (14.0-18.0); Immature Granulocytes % 0.5 %; Immature Granulocytes Absolute 0.04 #; Lymphocytes # 1.6 10*3/uL (1.4-4.0); Lymphocytes % 18.3 % (21.2-54.2); Mean Corpuscular HGB Conc 31.4 GM/DL (32-36); Mean Corpuscular Volume 102.1 FL (87-102); Mean Platelet Volume 11.7 FL (9.6-12.0); Monocytes # 0.9 10*3/uL (0.11-0.8); Monocytes % 10.4 % (1.7-12.7); Neutrophils % 70.2 % (38.7-73.9); Platelet Count 132 T/CUMM (130-400); Red Blood Count 4.28 MC/CUMM (3.8-5.5); White Blood Count 8.7 T/CUMM (4-12)
[2022-04-17 06:37] LABS: Calcium 8.6 MG/DL (8.5-10.1); Potassium 4.2 MMOL/L (3.5-5.1)
[2022-04-17 06:53] LABS: Lymphocytes 20 % (20-55); Nucleated Red Blood Cells 1 (0-5); Platelet Estimate Normal; Total Cells Counted 100
[2022-04-17] MEDS: NICOTINE 21 MG/24 HR PATCH TRANSDERM PRN (08:22)
[2022-04-17] MEDS: METOPROLOL TARTRATE 25 MG TABLET PO SCH ×2 (08:24→21:12)
[2022-04-17] MEDS: predniSONE 20 MG TABLET PO SCH (08:24)
[2022-04-17] MEDS: DOCUSATE SODIUM 100 MG CAPSULE PO SCH ×2 (08:24→21:09)
[2022-04-17] MEDS: CHOLECALCIFEROL 1,000 UNIT TABLET PO SCH (08:31)
[2022-04-17] MEDS ORDERED: MAGNESIUM SULF RIDER 2 GM/50 ML PREMIX IV ONE (09:00)
[2022-04-18] MEDS: ALBUTEROL/IPRATROPIUM 3 ML NEB RESP TX SCH ×3 (00:20→13:40)
[2022-04-18] MEDS: SODIUM CHLORIDE 0.9% 1,000 ML IV SCH (08:07)
[2022-04-18] MEDS: MORPHINE 2 MG/1 ML SYRINGE IV PRN (10:31)
[2022-04-18] MEDS: DOCUSATE SODIUM 100 MG CAPSULE PO SCH (11:08)
[2022-04-18] MEDS: predniSONE 20 MG TABLET PO SCH (11:09)
[2022-04-18] MEDS: CHOLECALCIFEROL 1,000 UNIT TABLET PO SCH (11:09)
[2022-04-18] MEDS: METOPROLOL TARTRATE 25 MG TABLET PO SCH (11:10)
[2022-04-18 16:10] VITALS: BP 132/69
== END 2022-04-18 17:51 | disposition home or self-care (01) | DRG 199 ==
LOC: N.ED 20:33 → N.EDINP 23:38 → N.5E 04-15 00:33
PROVIDERS: ADMIT Internal Medicine; ATTEND Internal Medicine